=== PATIENT | female | born 1955 | race Caucasian/White ===

== ENCOUNTER 2023-04-14 12:45 | Emergency (ER) | payer MEDICARE, BC ==
--- NOTE | 2023-04-14 13:38 | XRAY Report ---
PROCEDURE: Hand 3 View LT INDICATIONS: FELL/PAIN/TENDERNESS/SWELLING L 3RD DIGIT TECHNIQUE: 3 views of the hand(s) acquired. COMPARISON: X-ray forearm 04/14/2023 FINDINGS: Bones: No fracture. There is subluxation at the third DIP joint.. No suspicious bony lesions. Soft tissues: No suspicious soft tissue calcifications or masses. IMPRESSION: No visualized acute fracture or dislocation. However, occult injury cannot be excluded. Recommend jaquelin rt interval imaging follow-up in 7-10 days as clinically indicated for additional evaluation. Reviewed by: Christine Barrientos MD on 04/14/2023 1:37 PM PDT Approved by: Christine Barrientos MD on 04/14/2023 1:37 PM PDT Station ID: [id number]
--- NOTE | 2023-04-14 13:38 | XRAY Report ---
PROCEDURE: Forearm LT INDICATIONS: FELL/PAIN/TENDERESS/BRUISING L FOREARM TECHNIQUE: 2 views of the forearm were acquired. COMPARISON: X-ray hand 04/14/2023 FINDINGS: Bones: No fractures or dislocations. No suspicious bony lesions. Soft tissues: No suspicious soft tissue calcifications or masses. IMPRESSION: No visualized acute fracture or dislocation. However, occult injury cannot be excluded. Recommend jaquelin rt interval imaging follow-up in 7-10 days as clinically indicated for additional evaluation. Reviewed by: Christine Barrientos MD on 04/14/2023 1:37 PM PDT Approved by: Christine Barrientos MD on 04/14/2023 1:37 PM PDT Station ID: [id number]
--- NOTE | 2023-04-14 14:22 | XRAY Report ---
PROCEDURE: Humerus LT INDICATIONS: fall/pain TECHNIQUE: 2 views of the humerus were acquired. COMPARISON: None. FINDINGS: Bones: No fractures or dislocations. No suspicious bony lesions. Soft tissues: No suspicious soft tissue calcifications or masses. IMPRESSION: No visualized acute fracture or dislocation. However, occult injury cannot be excluded. Recommend jaquelin rt interval imaging follow-up in 7-10 days as clinically indicated for additional evaluation. Reviewed by: Christine Barrientos MD on 04/14/2023 2:21 PM PDT Approved by: Christine Barrientos MD on 04/14/2023 2:21 PM PDT Station ID: [id number]
--- NOTE | 2023-04-14 14:53 | ED Physician Documentation ---
History of Present Illness - Stated complaint Stated Complaint: GLF/FINGER INJ - Chief complaint Chief Complaint: Ext Problem - History obtained from History obtained from: Patient - Additonal information Additional information: Patient is a 67-year-old female presenting for evaluation after a fall this morning. Patient states that she was hanging up Josh lights and accidentally stumbled falling over a 5 foot rock wall. She did hit her head. She denies LOC. She also reports pain to the left arm. She does not take a blood thinner. Review of Systems Constitutional: denies: Fever Cardiac: denies: Chest pain / pressure Respiratory: denies: Dyspnea GI: denies: Abdominal Pain Musculoskeletal: reports: Extremity pain Neurologic: reports: Head injury. denies: Syncope PD PAST MEDICAL HISTORY - Present Medications Home Medications: Ambulatory Orders Medication Instructions Recorded Confirmed Atorvastatin Calcium [Lipitor] 40 mg PO DAILY 04/14/23 04/14/23 Triamterene/Hydrochlorothiazid 1 caplet PO DAILY 04/14/23 04/14/23 [Maxzide 75 mg-50 mg Tablet] traZODone [Desyrel] 50 mg PO DAILY 04/14/23 04/14/23 - Allergies Allergies/Adverse Reactions: Allergies Allergy/AdvReac Type Severity Reaction Status Date / Time No Known Drug Allergies Allergy Verified 04/14/23 13:19 PD ED PE NORMAL - General General: Alert and oriented X 3, No acute distress, Well developed/nourished - HEENT HEENT: PERRL, EOMI, Moist mucous membranes, Pharynx benign, Other (Swelling to left parietal scalp) - Neck Neck: Supple, no meningeal sign, No bony TTP, C-Spine cleared by NEXUS criteria - Cardiac Cardiac: RRR, No murmur - Respiratory Respiratory: No respiratory distress, Clear bilaterally - Abdomen Abdomen: Soft, Non tender, Non distended - Back Back: No spinal TTP - Derm Derm: Warm and dry - Extremities Extremities: Other (Tenderness and bruising to distal portion of the left upper arm, mallet deformity to left middle digit.) - Neuro Neuro: Alert and oriented X 3, No motor deficit, No sensory deficit, Normal speech Results - Vitals Vitals: Vital Signs - 24 hr 04/14/23 04/14/23 13:11 16:04 Temperature 36.4 C L Heart Rate 80 76 Respiratory 18 14 Rate Blood Pressure 139/62 H 137/76 H O2 Saturation 99 100 Oxygen O2 Source Room air PD Medical Decision Making - ED course Complexity details: reviewed results, re-evaluated patient, d/w patient ED course: Patient is a 67-year-old female presenting for evaluation of a head injury and left-sided arm pain after a fall this morning. Not on blood thinners. Normal normal neuro exam. Does have some contusions to the left arm but I see no fracture or dislocation On left hand, left forearm and left humerus for x-ray. Normal range of motion at left shoulder and left elbow.. She does have a deformity to the distal left middle digit concerning for mallet finger. However I do not see a fracture on the x-ray. Nonetheless I have splinted the DIP with patient able to flex the PIP. I have encouraged close follow-up with orthopedic surgery. Head CT is negative for bleed. Patient declines need for any pain medications here. Patient counseled on concerning symptoms to return for as well as need for follow-up with PCP and orthopedic surgery. Departure - Departure Disposition: 01 Home, Self Care Clinical Impression: Head injury, Contusion of left arm, Mallet finger of left finger(s) Condition: Stable Instructions: ED Head Injury Closed, ED Fx Mallet Finger Follow-Up: Juanjose Bob MD [Provider Admit Priv/Credential] - Comments: I do not see any fractures or dislocations on your x-rays or CT of your head but you do have an irregularity to your left middle finger that makes me concerned about a possible tendon injury. Please continue to wear the splint until you are seen for follow-up by the orthopedic surgeon. Continue with ice and Tylenol as needed for pain. Return to the emergency department with any worsening symptoms. Forms: PCP List Discharge Date/Time: 04/14/23 16:13
--- NOTE | 2023-04-14 15:46 | CT Report ---
PROCEDURE: CT brain without contrast INDICATIONS: head injury TECHNIQUE: Helical axial CT of the brain was obtained without contrast and reformatted in multiple p lanes. Radiation dose reduction was achieved using automated exposure control or adjustment of mA and /or kV according to patient size. COMPARISON: None FINDINGS: CSF spaces: Ventricles are appropriate in size and position. No hydrocephalus. Basal cisterns unre markable. Brain: No midline shift. No intracranial masses or hemorrhage. Amezquita-white matter interface is norm al. Atrophy with moderate white matter chronic ischemic change. Enlarged perivascular space noted in the left basal ganglia. Skull and face: Calvarium and skull base are unremarkable without suspicious lesion. Sinuses: Visualized sinuses and mastoids are clear. IMPRESSION: Mild atrophy and chronic ischemic change without intracranial hemorrhage or mass effect. Reviewed by: Chin Prince MD on 04/14/2023 2:45 PM AKDT Approved by: Chin Prince MD on 04/14/2023 2:45 PM AKDT Station ID: [id number]
[2023-04-14 16:12] VITALS: BP 137/76; O2SAT 100
== END 2023-04-14 16:13 | disposition home or self-care (01) ==
LOC: ED 12:45
DX: S40.022A Contusion of left upper arm, initial encounter (principal); S09.90XA Unspecified injury of head, initial encounter; M20.012 Mallet finger of left finger(s); W01.0XXA Fall on same level from slipping, tripping and stumbling without subsequent striking against object, initial encounter; Y93.89 Activity, other specified
CPT/HCPCS: 99283; 99284